=== PATIENT | female | born 1960 | race African-American/Black ===

== ENCOUNTER 2016-09-03 06:25 | Day surgery (SDC) | payer BC ==
[~2016-09-03] VITALS: Ht 157.5 cm; Wt 74.4 kg
[~2016-09-03 06:25] MED LIST: ALEVE220 MG PO; ASPIR 8181 M1 PO; AZITHROMYCIN250 MG1 PO; CENTRUM COMPLE1 EACH PO; DOXYCYCLINE HY100 MG PO; Ecotrin PO; PREDNISONE50 MG PO; TYLENOL ARTHRI650 MG PO; TYLENOL EXTRA500 MG PO
[2016-09-03 08:03] VITALS: BP 112/77
[2016-09-03] MEDS ORDERED: NORCO 5/3251 TABLET PO (11:28)
[2016-09-03 12:00] VITALS: BP 116/79
[2016-09-03 12:50] VITALS: BP 107/71
== END 2016-09-03 12:50 | disposition home or self-care (01) ==
LOC: SDC 06:25
PROC: 0HBU0ZZ Excision of Left Breast, Open Approach (ICD-10-PCS; principal; 2016-09-03)
DX: N60.91 Unspecified benign mammary dysplasia of right breast (principal); N62 Hypertrophy of breast; J45.909 Unspecified asthma, uncomplicated; Z88.0 Allergy status to penicillin; Z79.82 Long term (current) use of aspirin
CPT/HCPCS: 88307; 88341 TC; 88342 TC; J0131; J0330; J1100; J1885; J2405; J3010; J3370